=== PATIENT | male | born 1965 | race Caucasian/White ===

== ENCOUNTER 2016-07-30 07:47 | Emergency (ER) | payer OTHER ==
--- NOTE | 2016-07-30 08:04 | ED UPPER/LOWER EXTREMITY COMPL ---
History of Present Illness General Chief Complaint: Fall Stated Complaint: FALL Source: patient, EMS Exam Limitations: no limitations Vital Signs & Intake/Output Vital Signs & Intake/Output Vital Signs Date Time Temp Pulse Resp B/P Pulse O2 O2 Flow FiO2 Ox Delivery Rate 07/30 1019 98.0 80 18 117/74 98 Room Air 07/30 0946 98.4 84 20 127/88 95 Room Air 07/30 0837 96.9 84 18 139/85 96 Room Air 07/30 0755 97.8 80 20 149/77 100 Room Air Allergies Coded Allergies: No Known Drug Allergies (07/30/16) Reconcile Medications No Known Home Medications Triage Note: PT BIBA FROM HIS HOTEL ROOM S/P SLIP AND FALL IN THE BATHROOM. PT STATES HE WAS GETTING IN THE SHOWER AND SLIPPED. PT DENIES DIZZINESS OR SYNCOPE EPISODE. PT C/O OF RIGHT SHOULDER PAIN THAT INCREASES WITH MOVEMENT. PT STATES HE HAS HAD SURGERY PREVIOUSLY IN THAT ARM. Triage Nurses Notes Reviewed? yes Onset: Just prior to arrival Duration: minute(s):, constant, continues in ED Timing: recent history Severity: severe Pain/Injury Location: Right: Shoulder. Method of Injury: direct blow, fall Modifying Factors: Worsens With: jarring, movement. HPI: Prior to admission patient slipped and fell onto right shoulder bathtub. Complains of limited range of motion right shoulder with severe sharp nonradiating pain. He denies fever chills nausea vomiting diarrhea abdominal pain chest pain shortness of breath headache dysuria or rash bleeding. Past History Travel History Traveled to [place] past 21 day No Medical History Any Pertinent Medical History? none Surgical History Surgical History: non-contributory Psychosocial History What is your primary language Maldivian Tobacco Use: Never used ETOH Use: occasional use Family History Hx Contributory? No Review of Systems Review of Systems Constitutional: Reports: no symptoms. EENTM: Reports: no symptoms. Respiratory: Reports: no symptoms. Cardiovascular: Reports: no symptoms. Gastrointestinal/Abdominal: Reports: no symptoms. Genitourinary: Reports: no symptoms. Musculoskeletal: Reports: see HPI, joint pain. Skin: Reports: no symptoms. Neurological/Psychological: Reports: no symptoms. Hematologic/Endocrine: Reports: no symptoms. Immunological: Reports: no symptoms. All Other Systems: Reviewed and Negative Physical Exam Physical Exam General Appearance: well developed/nourished, alert, awake, moderate distress, obese Head: atraumatic, normal appearance Eyes: Bilateral: normal appearance, PERRL, EOMI. Ears, Nose, Throat: normal pharynx, normal ENT inspection, hearing grossly normal Neck: normal inspection, supple, full range of motion, no midline tenderness Cardiovascular/Respiratory: normal breath sounds, normal peripheral pulses, regular rate/rhythm, no respiratory distress Peripheral Pulses: 4+ carotid (R), 4+ carotid (L) Back: normal inspection Shoulder Left: normal range of motion, normal inspection Shoulder Right: tenderness, deformity, soft tissue tenderness, limited range of motion Elbow Left: normal range of motion, normal inspection Elbow Right: normal range of motion, normal inspection Hand Left: normal inspection, normal range of motion Hand Right: normal inspection, normal range of motion Upper Extremity Reflexes: 2+: bicep (L), tricep (L). Leg Left: normal range of motion, normal inspection Leg Right: normal range of motion, normal inspection Hip Left: normal range of motion, normal inspection Hip Right: normal range of motion, normal inspection Knee Left: normal range of motion, normal inspection Knee Right: normal range of motion, normal inspection Foot Left: normal inspection, normal range of motion Foot Right: normal inspection, normal range of motion Lower Extremity Reflexes: 2+: knee (R), knee (L). Neurologic/Tendon: normal sensation, normal motor functions, normal tendon functions Skin: intact, normal color, warm/dry Lymphatic: no anterior cervical tanner Progress Differential Diagnosis: dislocation, fracture Plan of Care: Orders Procedure Date/time Status Durable Medical Equipment 07/30 931 Active Diagnostic Imaging: Viewed by Me: Radiology Read. Discussed w/RAD: Radiology Read. Radiology Impression: dislocation, satisfactory reduction Departure Departure Time of Disposition: 1038 Disposition: HOME OR SELF CARE Condition: Stable Clinical Impression Primary Impression: Dislocation of right shoulder joint Qualifiers: Encounter type: initial encounter Qualified Code: S43.004A - Unspecified dislocation of right shoulder joint, initial encounter Additional Instructions: Wear sling at all times for 2 weeks Follow up with an orthopedic surgeon after returning home Departure Forms: Customer Survey General Discharge Information Prescriptions: Current Visit Scripts No Known Home Medications Procedures Joint Reduction Joint Reduction Site: shoulder (R) Reduction Attempts: 1 Pre-Procedure NV Exam: Yes Post-Procedure NV Exam: Yes Post Joint Reduction Film: joint reduced, no fracture seen
--- NOTE | 2016-07-30 08:54 | RADIOLOGY REPORT ---
EXAMINATION: XR SHOULDER, RIGHT CLINICAL INFORMATION: Fall onto right shoulder COMPARISON: None. TECHNIQUE: 3 views of the right shoulder. FINDINGS: There is anterior dislocation of the humeral head relative to the glenoid fossa. No acute fracture is seen. The acromioclavicular joint is intact. IMPRESSION: Anterior glenohumeral dislocation. No fracture identified.
--- NOTE | 2016-07-30 10:36 | RADIOLOGY REPORT ---
EXAMINATION: XR SHOULDER, RIGHT CLINICAL INFORMATION: Shoulder reduction COMPARISON: Right shoulder radiographs from earlier today TECHNIQUE: 2 views of the right shoulder. FINDINGS: Glenohumeral alignment now appears anatomic. No acute fracture is seen. The acromioclavicular joint is intact. IMPRESSION: Anatomic alignment across the glenohumeral joint.
== END 2016-07-30 11:30 ==
LOC: ERH 07:47
DX: S43.004A Unspecified dislocation of right shoulder joint, initial encounter (principal); W18.2XXA Fall in (into) shower or empty bathtub, initial encounter
CPT/HCPCS: 73030-RT; 96374; 96375; J1885; J3360